=== PATIENT | female | born 1960 | race Caucasian/White ===

== ENCOUNTER → 2019-03-21 08:02 | Outpatient (CLI) | payer OTHER, SELFPAY ==
[2019-03-21 09:15] LABS: Hematocrit 35.3 % (36-46); Hemoglobin 12.1 g/dL (12.0-16.0); Mean Corpuscular HGB Conc 34.3 % (30-36); Mean Corpuscular Hemoglobin 29.6 PG (26-34); Mean Corpuscular Volume 86.3 fL (80-100); Platelet Count 206 X10^3/uL (150-400); Red Blood Cell Count 4.09 X10^6/uL (4.0-5.2); Red Cell Distribution Width 13.4 % (11.6-14.8); White Blood Cell Count 5.5 X10^3/uL (4.5-11.0)
[2019-03-21 09:22] LABS: Hemoglobin A1C% w Est Avg Glu 5.8 % (4.0-6.0)
[2019-03-21 09:50] LABS: Alanine Aminotransferase 14 IU/L (<35); Albumin 4.3 g/dL (3.5-5.0); Albumin Globulin Ratio 0.9 (1.0-2.8); Alkaline Phosphatase 95 U/L (38-126); Aspartate Aminotransferase 30 IU/L (14-36); BUN Creatinine Ratio 28.6 (6-22); Bilirubin Total 0.4 mg/dL (0.2-1.3); Blood Urea Nitrogen 20 mg/dL (7-17); Calcium 9.5 mg/dL (8.4-10.2); Carbon Dioxide 32 mmol/L (22-32); Chloride 106 mmol/L (98-107); Cholesterol 183 mg/dL (140-199); Estimated Glomerular Filt Rate > 60.0 mL/min (>60); Glucose 114 mg/dL (70-100); HDL Cholesterol 39 mg/dL (40-60); HEMOLYSIS < 15 (0-50); LDL Cholesterol Calculated 127 mg/dL (<100); Potassium 4.3 mmol/L (3.4-5.1); Sodium 144 mmol/L (137-145); Total Protein 9.3 g/dL (6.3-8.2); Triglycerides 87 mg/dL (35-150)
[2019-03-21 10:49] LABS: Hep C Virus Ab w/Reflex Quant NEGATIVE s/c (NEGATIVE)
--- NOTE | 2019-07-02 14:13 | ONC.MSW ---
Description: Initial Referral Navigation T/C Activity: Spoke with pt again re: coordinating her transfer from [facility] to [facility]. Called and requested the referral from Quyen Maher, called [facility] and requested her records. Forwarded to scheduling for next available initial appt. time.
== END ==
PROVIDERS: PCP Nurse Practitioner Family; Visit Provider Nurse Practitioner Family
DX: Z11.59 Encounter for screening for other viral diseases (principal); Z86.39 Personal history of other endocrine, nutritional and metabolic disease; E78.5 Hyperlipidemia, unspecified; R73.03 Prediabetes
CPT/HCPCS: 36415; 80053; 80061; 83036; 84443; 85027; 86803

== ENCOUNTER 2019-08-22 18:05 | Emergency (ER) | payer OTHER, SELFPAY ==
[2019-08-22] VITALS (13 sets, daily range): BP systolic 129–176; BP diastolic 62–84; PULSE 63–96; RESP 8–20; TEMP 36.2; O2SAT 96–100; BMI 27.2
--- NOTE | 2019-08-22 | DI.RAD.S_ITS ---
PROCEDURE: XR HIP RT 1V INDICATIONS: POST REDUCTION TECHNIQUE: Single AP view of the hip were acquired. COMPARISON: [facility], CR, XR HIP W PEL IF DONE RT 2V, 08/22/2019, 18:10. FINDINGS: Bones: Status post closed reduction of previously dislocated right femoral head back in normal anatomic alignment. Comminuted fractures of the acetabulum are noted. Previously described tiny ossific fragments within the femoroacetabular joint on comparison CT are not visualized radiographically. No suspicious bony lesions. The visualized pelvic ring appears intact. Soft tissues: No suspicious soft tissue calcifications or masses. IMPRESSION: Status post interval closed reduction of previously dislocated right femoral head back into normal anatomic alignment. Known comminuted acetabular fractures and posterior column fracture are better visualized on comparison CT. Dictated by: Sam Rivas M.D. on 08/22/2019 at 19:24 Approved by: Sam Rivas M.D. on 08/22/2019 at 19:27
--- NOTE | 2019-08-22 18:08 | DI.RAD.S_ITS ---
PROCEDURE: XR HIP W PEL IF DONE RT 2V INDICATIONS: fall, obvious deformity TECHNIQUE: Single AP views of the hip was acquired. COMPARISON: None. FINDINGS: Bones: There is a displaced right femoral neck fracture. This probably involves the intertrochanteric region. Density projects over the proximal femoral head likely representing a fragment off the acetabulum. Remainder of the visualized osseous structures appear intact. No suspicious bony lesions. The visualized pelvic ring appears intact. Soft tissues: No suspicious soft tissue calcifications or masses. IMPRESSION: Limited evaluation of the hip secondary to positioning. However, an intratrochanteric fracture is suspected with associated fracture of the acetabulum. Dictated by: Sam Rivas M.D. on 08/22/2019 at 18:19 Approved by: Sam Rivas M.D. on 08/22/2019 at 18:21
--- NOTE | 2019-08-22 18:15 | DI.CT.S_ITS ---
PROCEDURE: CT PEL WO CON INDICATIONS: fall, obvious deformity TECHNIQUE: Noncontrast 3 mm axial sections acquired through the bony pelvis, with coronal and sagittal reformatting. COMPARISON: [facility], CR, XR HIP W PEL IF DONE RT 2V, 08/22/2019, 18:10. FINDINGS: Image quality: Excellent. Bones: The right femur is dislocated with the femoral head noted posterior and superior to the acetabulum. There is associated comminuted fracture involving the postero-superior and posterior gonzalez of the acetabulum with associated posterior column fracture/ischium. Multiple fracture fragments surround the posterior lateral aspect of the acetabulum and adjacent to the superolateral femoral head. Soft tissues: Visualized bowel appear unremarkable. No pathologic pelvic free fluid. No pelvic lymphadenopathy. There is edema and thickening of the right piriformis muscle. There is hyperdense fluid within the right hip joint likely representing hemarthrosis. IMPRESSION: Posterior, superior dislocation of the right femoral head with comminuted right acetabular fracture and posterior column fracture. The right femur appears intact. Associated right hip joint hemarthrosis with very small fracture fragment noted the femoroacetabular joint. Intramuscular contusion/hematoma of the right piriformis muscle Dictated by: Sam Rivas M.D. on 08/22/2019 at 18:45 Approved by: Sam Rivas M.D. on 08/22/2019 at 19:01
--- NOTE | 2019-08-22 18:27 | ED_ITS ---
HPI - Extremity Injury (Lower) General Chief Complaint: Trauma Stated Complaint: R Hip dislocated Time Seen by Provider: 08/22/19 18:05 Source: EMS Mode of arrival: EMS Limitations: no limitations History of Present Illness HPI Narrative: 59F nonsmoker with hx of seasonal allergies presents by EMS for evaluation of obvious lower extremity injury. She was hiking at a local park and lost her balance and fell, landing on her Right hip. The fall was from ground level. She has significant pain and has no ability to ambulate, there is obvious deformity to right lower extremity. Patient denies any head neck or yan k pain. She denies any alcohol, street drugs or blood thinners. EMS transported her here, placed her in a pelvic binder, administered ketamine 25 mg as well as Versed. Patient has had no fever or chills, she denies any headache, sore throat, cough or shortness of breath. She has had no GI symptoms such as nausea, vomiting or diarrhea. She denies any recent travel or exposure to persons suspicious for COVID-19. Related Data Home Medications Medication Instructions Recorded Confirmed acyclovir 400 mg BID 08/20/19 08/20/19 cholecalciferol (vitamin D3) 1,000 unit PO DAILY 08/20/19 08/20/19 [Vitamin D3] fluticasone propionate [Flonase 50 mcg INTRANASAL DAILY 08/20/19 08/20/19 Allergy Relief] trazodone 50 mg PO BEDTIME PRN 08/20/19 08/20/19 Allergies Allergy/AdvReac Type Severity Reaction Status Date / Time No Known Drug Allergies Allergy Verified 08/22/19 18:11 Review of Systems Constitutional Constitutional: Denies chills, Denies fatigue, Denies fever(s), Denies frequent falls, Denies lethargy and Denies weakness Eyes Eyes: Denies change in vision, Denies eye discharge, Denies irritation and Denies loss of vision ENT Ears, Nose, Mouth, and Throat: Denies change in voice, Denies dizziness, Denies neck pain, Denies sore throat and Denies throat swelling Cardiovascular Cardiovascular: Denies chest pain, Denies irregular heart rhythm, Denies lightheadedness, Denies palpitations, Denies dyspnea, Denies dyspnea on exertion and Denies orthopnea Respiratory Respiratory: Denies cough, Denies dyspnea, Denies dyspnea on exertion and Denies wheezing Gastrointestinal Gastrointestinal: Denies abdominal pain, Denies change in bowel habits, Denies diarrhea, Denies nausea and Denies vomiting Genitourinary Genitourinary: Denies hematuria, Denies flank pain, Denies urinary incontinence and Denies urinary urgency Musculoskeletal Musculoskeletal: Reports abnormal gait, Denies back pain, Reports limited range of motion, Denies muscle weakness, Denies neck pain, Denies numbness and Denies tingling Integumentary/Breasts Skin/Breast: Denies pruritus, Denies erythema, Denies rash and Denies wounds Neurologic Neurologic: Reports abnormal gait, Denies behavioral changes, Denies confusion, Denies dizziness, Denies frequent falls, Denies loss of vision, Denies numbness, Denies tingling and Denies weakness Psychiatric Psychiatric: Denies anxiety, Denies behavioral changes, Denies confusion, Denies depression, Denies homicidal ideation and Denies suicidal ideation Endocrine Endocrine: Denies fatigue, Denies flushing and Denies palpitations Hematologic/Lymphatic Hematologic/Lymphatic: Denies easy bruising Allergic/Immunologic Allergic/Immunologic: Denies urticaria, Denies throat swelling and Denies wheezing Patient History Medical History Hx gestational diabetes (Acute) Surgical History Hx of tonsillectomy (Acute) Family History Mother Smoldering multiple myeloma Grandmother Colon cancer Grandmother Leukemia Social History Smoking Status: Never smoker Smoking Status: Never smoker Alcohol type: wine Substance Use Type: does not use Exam Narrative Exam Narrative: GENERAL: [59] year old patient appears stated age. Well- nourished, well-developed patient, in mild distress. GCS 15 HEAD: Atraumatic. Normocephalic. EYES: Pupils equal round and reactive. Extraocular motions intact. No scleral icterus. No injection or drainage. ENT: Nose without bleeding, purulent drainage. Throat without erythema, tonsillar hypertrophy or exudate. Airway patent. NECK: Trachea midline. Non tender CARDIOVASCULAR: Regular rate and rhythm without murmurs, gallops, or rubs. RESPIRATORY: Clear to auscultation. Breath sounds equal bilaterally. No wheezes, rales, or rhonchi. GASTROINTESTINAL: Abdomen soft, non-tender, nondistended. EXTREMITIES: Shortening and internal rotation of right lower extremity consistent with dislocation. Closed, isolated and neurovascularly intact. No knee or ankle pain. Superficial abrasion to left medial wrist BACK: Nontender without deformity or crepitance. No flank tenderness. NEURO: AOx3. SKIN: No rash or erythema of visible areas Initial Vital Signs Initial Vital Signs: Vital Signs Temperature 97.1 F L 08/22/19 18:00 Pulse Rate 65 08/22/19 18:00 Respiratory Rate 18 08/22/19 18:00 Blood Pressure 147/68 H 08/22/19 18:00 Pulse Oximetry 99 08/22/19 18:00 Procedures Orthopedic Joint Reduction Joint #1: Time Out Performed: Yes Side: right Analgesia: procedural sedation Technique used: traction/counter-traction Post-reduction neuro exam: intact Post-reduction vascular: intact Post Reduction X-Ray Obtained: Yes Post Reduction X-Ray Results: reduced Splint Applied: Yes Patient Tolerated Procedure: Well Procedural Sedation Consent signed: Yes Time out performed: Yes Indication: fracture/dislocation reduction ASA Class: II Mallampati Airway Classification: Class II Time of Last PO Intake: 13:15 Preparation: traffic monitor specialist applied, pulse oximeter, capnometry used, supplemental O2 applied, suction/airway equipment at bedside and IV secured Ketamine: IV Ketamine dose (mg): 75 ED Sedation Level: Moderate (Concious) Patient Tolerated Procedure: Well Complications: hypoventilation Interventions: Airway repositioned and Assist by BVM Course Orders Ordered: ED Orders 08/22/19 18:08 XR pelvis 1-2V Stat 08/22/19 18:15 CT pelvis wo con Stat 08/22/19 18:20 Basic Metabolic Panel Stat Complete Blood Count AUTO DIFF Stat Hydromorphone Stat Discontinued Medications Diphtheria/Tetanus/Acell Pertussis (Adacel) 0.5 ml IM .ONCE ONE Stop: 08/22/19 18:19 Last Admin: 08/22/19 18:29 Dose: 0.5 ml Documented by: MEISENB Hydromorphone HCl (Dilaudid) 1 mg IV NOW ONE Stop: 08/22/19 18:19 Last Admin: 08/22/19 18:28 Dose: 1 mg Documented by: MEISENB Hydromorphone HCl (Dilaudid) 1 mg IV NOW ONE Stop: 08/22/19 22:04 Last Admin: 08/22/19 22:12 Dose: Not Given Documented by: KAEL Ketamine HCl (Ketalar) 75 mg 1 mg/kg (75 mg) IV NOW ONE Stop: 08/22/19 18:51 Last Admin: 08/22/19 18:54 Dose: 75 mg Documented by: NELA Ondansetron HCl (Zofran) 4 mg IV NOW ONE Stop: 08/22/19 18:19 Last Admin: 08/22/19 18:29 Dose: 4 mg Documented by: MARIAMSENJamal Consultations Consultation #1: discussed with Dr. Salazar (Ortho) whom states that given involvement of acetabulum that patient will need to be tranferred. Consultation #2: call to [facility]. Dr. Katz happy to accept Time: 19:19 Vital Signs Vital signs: Vital Signs - 8 hr 08/22/19 19:08 08/22/19 19:13 08/22/19 19:18 Pulse Rate 96 H 85 83 Respiratory Rate 13 13 13 Blood Pressure Blood Pressure [Left Arm] 174/84 H 174/76 H 172/74 H Pulse Oximetry 99 99 99 08/22/19 19:22 08/22/19 19:27 08/22/19 19:51 Pulse Rate 85 85 83 Respiratory Rate 13 13 20 Blood Pressure Blood Pressure [Left Arm] 165/79 H 176/80 H 152/72 H Pulse Oximetry 98 97 99 08/22/19 19:55 08/22/19 21:14 08/22/19 22:15 Pulse Rate 85 68 80 Respiratory Rate 18 13 14 Blood Pressure 129/62 Blood Pressure [Left Arm] 162/77 H 136/68 Pulse Oximetry 97 98 98 MDM - Extremity Injury (Lower) Lab Data Result diagrams: 08/22/19 18:20 08/22/19 18:20 Labs: Lab Results 08/22/19 08/22/19 Range/Units 18:20 18:20 WBC 8.0 D (4.5-11.0) X10^3/uL RBC 4.05 (4.0-5.2) X10^6/uL Hgb 11.8 L (12.0-16.0) g/dL Hct 35.1 L (36-46) % MCV 86.5 (80-100) fL MCH 29.1 (26-34) PG MCHC 33.6 (30-36) % RDW 13.6 (11.6-14.8) % Plt Count 185 (150-400) X10^3/uL Neut % (Auto) 62.4 (50-75) % Lymph % (Auto) 27.8 (25-40) % [place] % (Auto) 6.7 (3-14) % Eos % (Auto) 2.1 (2-4) % Baso % (Auto) 1.0 (0-2) % Neut # (Auto) 5000 (2116-3567) /uL Lymph # (Auto) 2200 (3958-3481) /uL [place] # (Auto) 500 (0-900) /uL Eos # (Auto) 200 (0-450) /uL Baso # (Auto) 100 (0-100) /uL Sodium 137 (137-145) mmol/L Potassium 3.5 (3.4-5.1) mmol/L Chloride 106 (98-107) mmol/L Carbon Dioxide 25 (22-32) mmol/L BUN 25 H (7-17) mg/dL Creatinine 0.64 (0.52-1.04) mg/dL Estimated GFR > 60.0 (>60) mL/min BUN/Creatinine Ratio 39.1 H (6-22) Glucose 148 H (70-100) mg/dL Calcium 9.3 (8.4-10.2) mg/dL Point of Care Testing Test Results Not applicable Imaging Data CT Pelvis: Radiologist's Impression: [address] [address] [address] Scan Report Signed Patient: Mary Walker AMR#: [id number] : 1Acct:[id number] Age/Sex: 59 / FDate of Service: 08/22/19 Loc: ED Accession Number: [id number] Procedure: CT pelvis wo con Ordering Provider: Gigi Ernst D.O. PROCEDURE: CT PEL WO CON INDICATIONS: fall, obvious deformity TECHNIQUE: Noncontrast 3 mm axial sections acquired through the bony pelvis, with coronal and sagittal reformatting. COMPARISON: [facility], CR, XR HIP W PEL IF DONE RT 2V, 08/22/2019, 18:10. FINDINGS: Image quality: Excellent. Bones: The right femur is dislocated with the femoral head noted posterior and superior to the acetabulum. There is associated comminuted fracture involving the postero-superior and posterior gonzalez of the acetabulum with associated posterior column fracture/ischium. Multiple fracture fragments surround the posterior lateral aspect of the a cetabulum and adjacent to the superolateral femoral head. Soft tissues: Visualized bowel appear unremarkable. No pathologic pelvic free fluid. No pelvic lymphadenopathy. There is edema and thickening of the right piriformis muscle. There is hyperdense fluid within the right hip joint likely representing hemarthrosis. IMPRESSION: Posterior, superior dislocation of the right femoral head with comminuted right acetabular fracture and posterior column fracture. The right femur appears intact. Associated right hip joint hemarthrosis with very small fracture fragment noted the femoroacetabular joint. Intramuscular contusion/hematoma of the right piriformis muscle Dictated by: Sam Rivas M.D. on 08/22/2019 at 18:45 Approved by: Sam Rivas M.D. on 08/22/2019 at 19:01 [facility] Narrative Medical decision making narrative: Patient with isolated right acetabular fracture and subsequent hip dislocation requires transfer due to acetabular involvement. Dislocation has been reduced. Patient has been swabbed for COVID- 19. Local ortho consulted but states she must be transferred due to acetabular involvement. Transfer forms completed, images pushed. Malone placed. Tetanus updated. Patient NPO since 1315. Patient and aware of (and in agreement with) diagnosis and plan. They have had their questions answered to their apparent satisfaction. Critical Care Time Critical Care Time Critical Care Time: Yes Total Critical Care Time: 35 Attestation: The high probability of a clinically significant, sudden or life threatening deterioration of the [MSK] system(s) required my full and direct attention, intervention and personal management. The aggregate critical care time was [35] minutes. This time is in addition to time spent performing reported procedures but includes the following: [x] Data Review and interpretation [x] Patient assessment and monitoring of vital signs [x] Documentation [x] Medication orders and management Discharge Plan Departure Patient Disposition: [facility] Clinical Impression: Closed fracture of right acetabulum Qualifiers: Encounter type: initial encounter Sublocation of acetabulum: posterior column Fracture alignment: nondisplaced Qualified Code(s): S32.444A - Nondisplaced fracture of posterior column [ilioischial] of right acetabulum, initial encounter for closed fracture Dislocation, hip, posterior Qualifiers: Encounter type: initial encounter Laterality: right Qualified Code(s): S73.014A - Posterior dislocation of right hip, initial encounter Discharge Date/Time: 08/22/19 22:17 Prescriptions: No Action trazodone 50 mg Tablet 50 mg PO BEDTIME PRN (Reason: Insomnia) RF: 0 acyclovir 400 mg Tablet 400 mg BID RF: 0 fluticasone propionate [Flonase Allergy Relief] 50 mcg/actuation Ashley,Suspension 50 mcg INTRANASAL DAILY RF: 0 cholecalciferol (vitamin D3) [Vitamin D3] 25 mcg (1,000 unit) Capsule 1,000 unit PO DAILY RF: 0 Referrals: Kay Irwin ARNP [Primary Care Provider] -
[2019-08-22] MEDS: HYDROMORPHONE 1 MG INJ IV (18:28)
[2019-08-22] MEDS: TET,DIPH,PERTUSS(ACELL),VAC/PF 0.5 ML SYRINGE IM (18:29)
[2019-08-22] MEDS: ONDANSETRON 4 MG/2 ML INJ IV (18:29)
[2019-08-22 18:37] LABS: Add Manual Diff / Slide Review NO; Basophils Absolute Auto 100 /uL (0-100); Eosinophils Absolute Auto 200 /uL (0-450); Eosinophils Percent Auto 2.1 % (2-4); Hematocrit 35.1 % (36-46); Hemoglobin 11.8 g/dL (12.0-16.0); Lymphocytes Absolute Auto 2200 /uL (1100-4500); Lymphocytes Percent Auto 27.8 % (25-40); Mean Corpuscular HGB Conc 33.6 % (30-36); Mean Corpuscular Hemoglobin 29.1 PG (26-34); Mean Corpuscular Volume 86.5 fL (80-100); Monocytes Absolute Auto 500 /uL (0-900); Monocytes Percent Auto 6.7 % (3-14); Neutrophils Absolute Auto 5000 /uL (1500-7000); Neutrophils Percent Auto 62.4 % (50-75); Platelet Count 185 X10^3/uL (150-400); Red Blood Cell Count 4.05 X10^6/uL (4.0-5.2); Red Cell Distribution Width 13.6 % (11.6-14.8)
[2019-08-22 18:44] LABS: BUN Creatinine Ratio 39.1 (6-22); Blood Urea Nitrogen 25 mg/dL (7-17); Calcium 9.3 mg/dL (8.4-10.2); Carbon Dioxide 25 mmol/L (22-32); Chloride 106 mmol/L (98-107); Estimated Glomerular Filt Rate > 60.0 mL/min (>60); Glucose 148 mg/dL (70-100); HEMOLYSIS < 15 (0-50); Potassium 3.5 mmol/L (3.4-5.1); Sodium 137 mmol/L (137-145)
[2019-08-22] MEDS: KETAMINE 500 MG/5 ML INJ 75 MG IV (18:54)
--- NOTE | 2019-08-22 19:05 | PC.NURSE ---
assist with BVM by RT
[2019-08-24 02:09] LABS: COVID19 Sendout Not Detected (Not Detect)
[2019-08-27 09:08] LABS: Hydromorphone <1 ng/mL (1-30)
== END 2019-08-22 22:17 | disposition short-term general hospital (02) ==
PROVIDERS: Emergency Provider Emergency Medicine; PCP Nurse Practitioner Family
DX: S32.444A Nondisplaced fracture of posterior column [ilioischial] of right acetabulum, initial encounter for closed fracture (principal); S73.014A Posterior dislocation of right hip, initial encounter; W18.30XA Fall on same level, unspecified, initial encounter; Z23 Encounter for immunization
CPT/HCPCS: 27232; 27252; 36415; 51701; 72170; 72192; 73501; 80048; 80361; 85025; 87635; 90471; 96374; 96375; 99152; 99285; 99291; 90715; J1170; J2405

== ENCOUNTER → 2019-10-05 14:45 | Outpatient (CLI) | payer OTHER, SELFPAY ==
--- NOTE | 2019-10-05 | DI.RAD.S_ITS ---
PROCEDURE: XR PEL MIN 3V INDICATIONS: Closed displaced fracture of posterior wall of right TECHNIQUE: 3 view(s) of the pelvis acquired. COMPARISON: [facility], CT, CT PEL WO CON, 08/22/2019, 18:16. [facility], CR, XR HIP W PEL IF DONE RT 2V, 08/22/2019, 18:10. FINDINGS: Bones: No previously unidentified fractures or dislocations. Buttressing fixation plate along the posterolateral and lateral acetabular border are noted, establishing normal alignment in the area of prior documented fracture at the posterior joint margin. There is a slight amount of heterotopic ossification in the area of trauma, seen on the AP and oblique projections. No suspicious bony lesions. Soft tissues: Visualized bowel gas pattern is normal. No suspicious soft tissue calcifications. IMPRESSION: Normal anatomic alignment established after ORIF of a acetabular margin displaced fracture, right hip. No additional trauma elsewhere is found. Dictated by: Shaheen Irby M.D. on 10/05/2019 at 15:40 Approved by: Shaheen Irby M.D. on 10/05/2019 at 15:42
== END ==
PROVIDERS: PCP Student in an Organized Health Care Education/Training Program; Referring Provider Nurse Practitioner; Visit Provider Nurse Practitioner
DX: S32.421D Displaced fracture of posterior wall of right acetabulum, subsequent encounter for fracture with routine healing (principal)
CPT/HCPCS: 72190

== ENCOUNTER → 2019-12-21 12:47 | Outpatient (CLI) | payer OTHER, SELFPAY | PROVIDERS: PCP Student in an Organized Health Care Education/Training Program; Referring Provider Internal Medicine Hematology & Oncology; Visit Provider Internal Medicine Hematology & Oncology | DX: M85.852 Other specified disorders of bone density and structure, left thigh (principal); D47.2 Monoclonal gammopathy | CPT/HCPCS: 77080; 77081 ==

== ENCOUNTER → 2020-01-01 11:36 | Outpatient (CLI) | payer OTHER, SELFPAY ==
[2020-01-02 10:41] LABS: COVID19 Sendout Not Detected (Not Detect)
== END ==
PROVIDERS: PCP Student in an Organized Health Care Education/Training Program; Visit Provider Physician Assistant
DX: Z11.59 Encounter for screening for other viral diseases (principal)
CPT/HCPCS: 87635

== ENCOUNTER 2020-01-04 11:59 | Day surgery (SDC) | payer OTHER, SELFPAY ==
[2020-01-04 12:17] VITALS: BMI 25.6
[2020-01-04 12:22] VITALS: BP 145/73; PULSE 60; RESP 16; TEMP 37.2; O2SAT 98
[2020-01-04] MEDS: fentaNYL 250 MCG/5 ML INJ IV (13:02)
[2020-01-04] MEDS: MIDAZOLAM 5 MG/5 ML VIAL IV (13:16)
[2020-01-04] MEDS: LACTATED RINGERS 1,000 ML 42 ML IV (13:30)
[2020-01-04 13:37] VITALS: BP 133/70; PULSE 65; RESP 15; TEMP 36.5; O2SAT 100
[2020-01-04 13:42] VITALS: BP 127/100; PULSE 75; RESP 20; O2SAT 100
[2020-01-04 13:47] VITALS: BP 146/67; PULSE 76; RESP 13; O2SAT 98
--- NOTE | 2020-01-04 13:49 | SUR.PHASEI ---
1337 arrived to PACU awake and oriented. HOB elevated, juice given. Denied pain/nausea. Jason CDI.
[2020-01-04 13:52] VITALS: BP 150/68; PULSE 68; RESP 12; O2SAT 100
--- NOTE | 2020-01-04 13:59 | SUR.PHASEI ---
1359 tolerated PO well, stable/oriented. Report to Estrellita Castillo RN
[2020-01-04 14:00] VITALS: BP 137/76; PULSE 65; RESP 16; TEMP 36.4; O2SAT 99
[2020-01-04 14:21] LABS: Add Manual Diff / Slide Review NO; Basophils Absolute Auto 100 /uL (0-100); Basophils Percent Auto 1.1 % (0-2); Eosinophils Absolute Auto 100 /uL (0-450); Eosinophils Percent Auto 1.8 % (2-4); Hematocrit 32.8 % (36-46); Hemoglobin 10.7 g/dL (12.0-16.0); Lymphocytes Absolute Auto 1400 /uL (1100-4500); Lymphocytes Percent Auto 19.8 % (25-40); Mean Corpuscular HGB Conc 32.7 % (30-36); Mean Corpuscular Hemoglobin 27.5 PG (26-34); Mean Corpuscular Volume 84.3 fL (80-100); Monocytes Absolute Auto 500 /uL (0-900); Monocytes Percent Auto 6.6 % (3-14); Neutrophils Absolute Auto 4900 /uL (1500-7000); Neutrophils Percent Auto 70.7 % (50-75); Platelet Count 184 X10^3/uL (150-400); Red Blood Cell Count 3.89 X10^6/uL (4.0-5.2); Red Cell Distribution Width 15.2 % (11.6-14.8)
== END 2020-01-04 14:22 | disposition home or self-care (01) ==
PROVIDERS: PCP Student in an Organized Health Care Education/Training Program; Referring Provider Internal Medicine Hematology & Oncology; Visit Provider Internal Medicine Hematology & Oncology
PROC: (CPT 38222; principal; 2020-01-04 13:00)
DX: D47.2 Monoclonal gammopathy (principal)
CPT/HCPCS: 38222; 85025; J2250; J3010

== ENCOUNTER → 2020-03-16 12:33 | Outpatient (CLI) | payer OTHER, SELFPAY ==
[2020-03-16 14:00] LABS: Add Manual Diff / Slide Review NO; Basophils Absolute Auto 100 /uL (0-100); Basophils Percent Auto 0.9 % (0-2); Eosinophils Absolute Auto 200 /uL (0-450); Eosinophils Percent Auto 2.7 % (2-4); Hematocrit 32.8 % (36-46); Lymphocytes Absolute Auto 1700 /uL (1100-4500); Lymphocytes Percent Auto 25.7 % (25-40); Mean Corpuscular HGB Conc 33.7 % (30-36); Mean Corpuscular Hemoglobin 28.6 PG (26-34); Mean Corpuscular Volume 84.9 fL (80-100); Monocytes Absolute Auto 400 /uL (0-900); Monocytes Percent Auto 6.7 % (3-14); Neutrophils Absolute Auto 4100 /uL (1500-7000); Platelet Count 219 X10^3/uL (150-400); Red Blood Cell Count 3.86 X10^6/uL (4.0-5.2); Red Cell Distribution Width 14.1 % (11.6-14.8); White Blood Cell Count 6.4 X10^3/uL (4.5-11.0)
[2020-03-16 14:45] LABS: HEMOLYSIS < 15 (0-50); Iron 40 ug/dL (37-170)
[2020-03-16 14:47] LABS: Alanine Aminotransferase 11 IU/L (<35); Albumin 4.3 g/dL (3.5-5.0); Albumin Globulin Ratio 0.7 (1.0-2.8); Alkaline Phosphatase 104 U/L (38-126); Aspartate Aminotransferase 20 IU/L (14-36); BUN Creatinine Ratio 23.2 (6-22); Bilirubin Total 0.3 mg/dL (0.2-1.3); Bilirubin Unconjugated 0.2 mg/dL (0.0-1.1); Blood Urea Nitrogen 16 mg/dL (7-17); Calcium 9.4 mg/dL (8.4-10.2); Carbon Dioxide 30 mmol/L (22-32); Chloride 103 mmol/L (98-107); Estimated Glomerular Filt Rate > 60.0 mL/min (>60); Globulin 5.9 g/dL (1.7-4.1); Glucose 91 mg/dL (70-100); HEMOLYSIS < 15 (0-50); Phosphorous 4.3 mg/dL (2.5-4.5); Potassium 4.5 mmol/L (3.4-5.1); Sodium 137 mmol/L (137-145)
[2020-03-16 14:56] LABS: Percent Iron Saturation 13 % (15-50); Total Iron Binding Capacity 309 ug/dL (265-497); Transferrin 230 mg/dL (206-381)
[2020-03-16 15:16] LABS: Total Protein 10.2 g/dL (6.3-8.2)
[2020-03-16 15:21] LABS: Ferritin 38 ng/mL (11-264)
[2020-03-16 15:51] LABS: Folate 8.3 ng/mL (2.76-20.0)
[2020-03-17 04:36] LABS: Immunoglobulin G, Quantitative 4922 mg/dL (586-1602)
[2020-03-17 12:36] LABS: Free Lambda Lt Chains,Serum 5.9 mg/L (5.7-26.3)
[2020-03-18 14:27] LABS: Immunoglobulin A, Serum 20 mg/dL (87-352); Immunoglobulin G,Serum 4839 mg/dL (586-1602); Immunoglobulin M, Serum 56 mg/dL (26-217)
[2020-03-18 21:09] LABS: Albumin 3.9 g/dL (2.9-4.4); Alpha 1 Globulin 0.2 g/dL (0.0-0.4); Alpha 2 Globulin 0.9 g/dL (0.4-1.0); Beta 1 Globulin 0.8 g/dL (0.7-1.3); Immunoglobulin A 21 mg/dL (87-352); Immunoglobulin M 59 mg/dL (26-217); Protein, Total 9.9 g/dL (6.0-8.5)
[2020-04-03 13:17] LABS: Immunoglobulin M, Quantitative 56
== END ==
PROVIDERS: PCP Student in an Organized Health Care Education/Training Program; Referring Provider Internal Medicine Hematology & Oncology; Visit Provider Internal Medicine Hematology & Oncology
DX: C90.00 Multiple myeloma not having achieved remission (principal)
CPT/HCPCS: 36415; 80069; 80076; 82607; 82728; 82746; 82784; 83540; 83550; 83883; 84155; 84165; 85025; 86334

== ENCOUNTER → 2020-07-31 14:56 | Outpatient (CLI) | payer BC, SELFPAY | PROVIDERS: PCP Student in an Organized Health Care Education/Training Program; Visit Provider Physician Assistant | DX: T80.219A Unspecified infection due to central venous catheter, initial encounter (principal) | CPT/HCPCS: 87070; 87075; 87077; 87147; 87186; 87205 ==

== ENCOUNTER → 2020-11-22 08:03 | Outpatient (CLI) | payer BC, SELFPAY ==
--- NOTE | 2020-11-22 08:04 | DI.ECHO.S_ITS ---
[facility] +---------+ [facility] +---------+ : : [address] : : : : [id number] : : : : Phone: [phone]+ Echocardiogram Report + + :Name: JIMBO DUQUE Study Date: 11/22/2020 Height: 66.5 in: :[employer] ReadingLocation: Weight: 155 lb : : Gender: Female BSA: 1.8 m2 : :: 1960 Age: 60 yrs BP: 120/74 mmHg: :Ordering Physician: MASOOD, : :SAURAV Presley Performed By: Rosa Isaac : :Referring: SAURAV CORREIA I : + + Interpretation Summary The left ventricle is normal in size and wall thickness. Left ventricular global longitudinal strain average is normal at -22.9% (normal is more negative than -20%). The ejection fraction is estimated to be 65-70%. There is no echo evidence for significant left ventricular outflow tract obstruction. The right ventricle is normal in size and function. There is trace tricuspid regurgitation. The right ventricular systolic pressure is estimated to be at least 35.4 mmHg based on an estimated right atrial pressure of 3 mm Hg. There is a small pericardial effusion that is circumferential. There are no echocardiographic indications of cardiac tamponade. In comparison to previous study, pericardial effusion is new. Procedure: A two-dimensional transthoracic echocardiogram with color flow and Doppler was performed. The study quality was technically adequate. Comparison is made with the echocardiogram of 11/01/2014. The patient was in sinus rhythm with heart rates between 54-70 bpm during the exam. Left Ventricle: The left ventricle is normal in size and wall thickness. There is no echo evidence for significant left ventricular outflow tract obstruction. There is no thrombus. A false chord is noted (normal variant). The ejection fraction is estimated to be 65-70%. Left ventricular global longitudinal strain average is normal at -22.9% (normal is more negative than -20%). There are no focal wall motion abnormalities. MV E/A: 1.4 Med Peak E' Zay: 9.0 cm/sec E/E' med: 11.9. Right Ventricle: The right ventricle is normal in size and function. Atria: The left atrium is mildly dilated. The left atrium has mildly increased in size since the prior echo exam. Right atrial size is normal. There is no Doppler evidence for an interatrial shunt. Mitral Valve: The mitral valve leaflets are mildly calcified. There is trace mitral regurgitation. Aortic Valve: The aortic valve is trileaflet. The aortic valve opens well. There is mild aortic valve sclerosis. There is no aortic valve stenosis. No aortic regurgitation is present. Tricuspid Valve: The tricuspid valve is normal in structure and function. There is trace tricuspid regurgitation. The right ventricular systolic pressure is estimated to be at least 35.4 mmHg based on an estimated right atrial pressure of 3 mm Hg. Pulmonic Valve: The pulmonic valve leaflets are thin and pliable; valve motion is normal. There is trace pulmonic regurgitation. Great Vessels: The aortic root is normal size. The dimensions of the ascending aorta are normal. The IVC is of normal diameter and collapses greater than 50% with a sniff. This suggests a low right atrial pressure of 3 mm Hg. Pericardium/ Pleura There is a small pericardial effusion that is circumferential. There are no echocardiographic indications of cardiac tamponade. There is no pleural effusion. MMode/2D Measurements & Calculations LVIDd: 5.0 cm LVOT diam: 2.0 cm LVIDs: 3.0 cm Ao root diam: 2.5 cm FS: 41.0 % asc Aorta Diam: 2.6 cm IVSd: 0.73 cm Ao Arch Diam (Prox Trans): 2.6 cm LVPWd: 0.89 cm LV lara. diameter/BSA (cm/m^2): 2.8 LV sys. diameter/BSA (cm/m^2): 1.6 LA A2 area: 20.1 cm2 RA long axis: 4.7 cm LA A4 area: 21.2 cm2 RA area: 13.1 cm2 LA length (vol): 5.3 cm RA vol: 30.8 ml LA vol: 68.3 ml RA : 17.1 ml/m2 LA vol index: 37.9 ml/m2 IVC diam: 1.7 cm RVD1 (basal): 3.6 cm TAPSE: 2.2 cm Doppler Measurements & Calculations Ao V2 max: 210.3 cm/sec LVOT Max Zay: 140.4 cm/sec Ao V2 mean: 142.0 cm/sec LV V1 max P.9 mmHg Ao max P.7 mmHg LV V1 VTI: 27.8 cm Ao mean P.3 mmHg JUSTIN(I,D): 1.9 cm2 Ao V2 VTI: 43.5 cm JUSTIN(V,D): 2.0 cm2 sev ratio: 0.64 JUSTIN indexed to BSA (cm^2/m^2): 1.1 MV E max zay: 107.2 cm/sec TR max zay: 284.5 cm/sec MV A max zay: 76.4 cm/sec TR max P.4 mmHg MV E/A: 1.4 PA V2 max: 122.3 cm/sec Med Peak E' Zay: 9.0 cm/sec PA V2 mean: 85.7 cm/sec E/E' med: 11.9 PA mean P.3 mmHg Lat Peak E' Zay: 9.6 cm/sec PA pr(Accel): 34.5 mmHg E/E' lat: 11.2 E/e' average: 11.6 MV dec time: 0.25 sec SV(LVOT): 83.9 ml Reading Physician:01:59 PM
== END ==
PROVIDERS: PCP Student in an Organized Health Care Education/Training Program; Referring Provider Internal Medicine; Visit Provider Internal Medicine
DX: C90.00 Multiple myeloma not having achieved remission (principal); I35.8 Other nonrheumatic aortic valve disorders; I31.3 Pericardial effusion (noninflammatory)
CPT/HCPCS: 93306

== ENCOUNTER → 2020-12-13 15:10 | Outpatient (CLI) | payer BC, SELFPAY ==
[2020-12-13 15:44] LABS: COVID19 -Nasal RAPID Negative (Negative)
== END ==
PROVIDERS: PCP Student in an Organized Health Care Education/Training Program; Visit Provider Nurse Practitioner
DX: J02.9 Acute pharyngitis, unspecified (principal); R09.81 Nasal congestion; R19.7 Diarrhea, unspecified; R50.9 Fever, unspecified; Z20.822 Contact with and (suspected) exposure to COVID-19
CPT/HCPCS: 87635

== ENCOUNTER → 2021-06-16 11:18 | Outpatient (CLI) | payer OTHER, SELFPAY | PROVIDERS: PCP Student in an Organized Health Care Education/Training Program; Referring Provider Family Medicine; Visit Provider Family Medicine | DX: Z20.822 Contact with and (suspected) exposure to COVID-19 (principal); C90.01 Multiple myeloma in remission | CPT/HCPCS: 86769 ==

== ENCOUNTER → 2021-09-14 11:43 | Outpatient (CLI) | payer OTHER, SELFPAY ==
--- NOTE | 2021-09-14 11:45 | DI.MG.S_ITS ---
BILATERAL DIGITAL SCREENING MAMMOGRAM 3D/2D WITH CAD: 09/14/2021 CLINICAL: Routine screening. Baseline exam. No prior exams were available for comparison. The tissue of both breasts is predominantly fatty. Current study was also evaluated with a Computer Aided Detection (CAD) system. There are mole markers on the right breast. No significant masses, calcifications, or other findings are seen in either breast. IMPRESSION: NEGATIVE There is no mammographic evidence of malignancy. A 1 year screening mammogram is recommended. This exam was interpreted at Station ID: [id number]. NOTE: For mammograms, a report in lay terms will be sent to the patient. Approximately 15% of breast malignancies will not be visualized mammographically. In the management of a palpable breast mass, a negative mammogram must not discourage biopsy of a clinically suspicious lesion. Electronically Signed By: Caden Glasgow acr/олег:09/14/2021 13:32:45 letter sent: Normal Exam ACR BI-RADS Category 1: Negative [id number]
== END ==
PROVIDERS: PCP Student in an Organized Health Care Education/Training Program; Referring Provider Student in an Organized Health Care Education/Training Program; Visit Provider Student in an Organized Health Care Education/Training Program
DX: Z12.31 Encounter for screening mammogram for malignant neoplasm of breast (principal)
CPT/HCPCS: 77063; 77067

== ENCOUNTER → 2022-08-15 | Outpatient (CLI) | payer OTHER, SELFPAY ==
--- NOTE | 2022-08-15 10:34 | DI.DEXA.S_ITS ---
Bone Density Report Name: JIMBO DUQUE Age: 62 Sex: Female Ethnicity: White Date of : 1960 Indication: osteopenia; monitoring treatment; prior fracture; Referring Provider: ANGIE HIGH Study: Bone densitometry was performed. Exam Date: August 15, 2022 Accession number: [id number] Bone Density: Region BMD T-score Z-score Classification AP Spine(L1-L4) 0.955 -0.8 0.7 Normal Femoral Neck (Left) 0.704 -1.3 0.1 Osteopenia Total Hip (Left) 0.852 -0.7 0.3 Normal Total Forearm (Left) 0.528 -0.9 0.4 Normal 1/3 Forearm (Left) 0.623 -1.2 0.3 Osteopenia UD Forearm (Left) 0.413 -0.5 0.5 Normal World Health Organization criteria for BMD impression classify patients as: Normal (T-score at or above -1.0), Osteopenia (T-score between -1.0 and -2.5), or Osteoporosis (T-score at or below -2.5). 10-year Fracture Risk: FRAX not reported because: Prior hip or vertebral fracture Treated for osteoporosis Previous Exams: -- Region Exam Age BMD T-score BMD Change BMD Change Date g/cm2 vs Baseline vs Previous -- AP Spine (L1-L4) 08/15/2022 62 0.955 -0.8 0.016 (1.7%)# 0.016 (1.7%)# 12/21/2019 59 0.939 -1.0 Total Hip(Left) 08/15/2022 62 0.852 -0.7 0.092 (12.1%)# 0.092 (12.1%)# 12/21/2019 59 0.760 -1.5 -- *Denotes significance at 95% confidence level, LSC for AP Spine = 0.022 g/cm2, LSC for Total Hip = 0.027 g/cm2 # Denotes dissimilar scan types or analysis methods Impression: The patient has low bone mass, based on the Left Femoral Neck T-score. The patient has risk factors, including: previous fracture. No significant bone loss was observed. Discussion: PATIENT UNDER TREATMENT WITH NO SIGNIFICANT BMD LOSS SINCE LAST EXAM. In an untreated patient, BMD typically declines with age. A lack of decline or gain is usually a sign that treatment is efficacious and fracture risk is reduced. It is important to ask patients whether they are taking their medications and to encourage continued and appropriate compliance with their osteoporosis therapies to reduce fracture risk. It is also important to review their risk factors and encourage appropriate calcium and vitamin D intakes, exercise, fall prevention and other lifestyle measures. Follow-Up: Consider a repeat BMD and Vertebral Fracture Assessment (VFA) exam in 2 years or sooner if medically necessary, to reassess this patient's status. Reported by: YOLIE ANDRADE M.D on 08/23/2022 1:05:00 PM.
== END ==
PROVIDERS: PCP Registered Nurse; Referring Provider Registered Nurse; Visit Provider Registered Nurse
DX: Z78.0 Asymptomatic menopausal state (principal); M85.852 Other specified disorders of bone density and structure, left thigh
CPT/HCPCS: 77080

== ENCOUNTER → 2024-03-03 08:14 | Outpatient (CLI) | payer OTHER, SELFPAY ==
[2024-03-03 08:47] LABS: Add Manual Diff / Slide Review NO; Basophils Absolute Auto 100 /uL (0-100); Basophils Percent Auto 1.1 % (0-2); Eosinophils Absolute Auto 200 /uL (0-450); Eosinophils Percent Auto 3.5 % (2-4); Hematocrit 39.3 % (36-46); Hemoglobin 13.3 g/dL (12.0-16.0); Lymphocytes Absolute Auto 1700 /uL (1100-4500); Mean Corpuscular HGB Conc 33.7 % (30-36); Mean Corpuscular Hemoglobin 29.1 PG (26-34); Mean Corpuscular Volume 86.3 fL (80-100); Monocytes Absolute Auto 400 /uL (0-900); Monocytes Percent Auto 6.8 % (3-14); Neutrophils Absolute Auto 3500 /uL (1500-7000); Neutrophils Percent Auto 59.6 % (50-75); Platelet Count 183 X10^3/uL (150-400); Red Blood Cell Count 4.56 X10^6/uL (4.0-5.2); Red Cell Distribution Width 13.6 % (11.6-14.8); White Blood Cell Count 5.8 X10^3/uL (4.5-11.0)
[2024-03-03 09:04] LABS: Hemoglobin A1C% w Est Avg Glu 5.8 % (4.0-6.0)
[2024-03-03 09:23] LABS: Free T4, Direct Thyroxine 0.84 ng/dL (0.78-2.19)
[2024-03-03 09:36] LABS: Thyroid Stimulating Hormone 2.52 uIU/mL (0.47-4.68)
== END ==
PROVIDERS: PCP Registered Nurse; Referring Provider Registered Nurse; Visit Provider Registered Nurse
DX: Z86.32 Personal history of gestational diabetes (principal); R73.03 Prediabetes
CPT/HCPCS: 36415; 83036; 84439; 84443; 85025

== ENCOUNTER → 2025-01-14 07:07 | Outpatient (CLI) | payer OTHER, SELFPAY ==
[2025-01-14 09:37] LABS: Hemoglobin A1C% w Est Avg Glu 5.9 % (4.0-6.0)
== END ==
PROVIDERS: PCP Registered Nurse; Referring Provider Registered Nurse; Visit Provider Registered Nurse
DX: R73.03 Prediabetes (principal)
CPT/HCPCS: 36415; 83036

== ENCOUNTER → 2025-01-23 09:54 | Outpatient (CLI) | payer OTHER, SELFPAY ==
[2025-01-23 12:49] LABS: Influenza A - CEPHEID Flu A NEGATIVE (NEGATIVE); Influenza B - CEPHEID Flu B NEGATIVE (NEGATIVE)
[2025-01-23 13:01] LABS: COVID-19 CEPHEID 4-PLEX PCR Negative (Negative)
== END ==
LOC: LAB 09:54
PROVIDERS: PCP Registered Nurse; Visit Provider Physician Assistant Medical
DX: R05.1 Acute cough (principal)
CPT/HCPCS: 87637

== ENCOUNTER → 2025-01-25 12:15 | Outpatient (CLI) | payer OTHER, SELFPAY ==
[2025-01-25 13:45] LABS: Alanine Aminotransferase 16 IU/L (<35); Albumin 4.5 g/dL (3.5-5.0); Albumin Globulin Ratio 1.7 (1.0-2.8); Alkaline Phosphatase 80 U/L (38-126); Blood Urea Nitrogen 19 mg/dL (7-17); Calcium 9.8 mg/dL (8.4-10.2); Carbon Dioxide 26 mmol/L (22-32); Chloride 103 mmol/L (98-107); Estimated Glomerular Filt Rate > 60 mL/min (>60); Globulin 2.7 g/dL (1.7-4.1); Glucose 91 mg/dL (70-99); HEMOLYSIS < 15 (0-50); Potassium 4.2 mmol/L (3.4-5.1); Sodium 138 mmol/L (137-145); Total Protein 7.2 g/dL (6.3-8.2)
== END ==
PROVIDERS: PCP Registered Nurse; Referring Provider Registered Nurse; Visit Provider Registered Nurse
DX: U07.1 COVID-19 (principal)
CPT/HCPCS: 36415; 80053